=== PATIENT | female | born 1980 | race Caucasian/White ===

== ENCOUNTER 2016-08-13 14:25 | Emergency (ER) | payer OTHER ==
[~2016-08-13] VITALS: Ht 149.9 cm; Wt 106.6 kg
[~2016-08-13 14:25] MED LIST: GLC500 PO; PRENTAB26 PO
[2016-08-13 14:27] VITALS: TEMP 36.7; O2SAT 95; Ht 149.9 cm; Wt 106.6 kg
[2016-08-13] MEDS ORDERED: ADVIN25/60 INH (14:52)
--- NOTE | 2016-08-13 15:19 | DIAGNOSTIC IMAGING REPORT ---
LEFT INDEX FINGER 3 VIEWS CLINICAL HISTORY: Left index finger pain status post trauma COMPARISON: None. DISCUSSION: 3 views reveal no fractures or dislocations. IMPRESSION: No acute fractures or dislocations identified Electronically signed by: Vincent Johnson M.D. 08/13/2016 3:18 PM Dictated Date/Time: 08/13/2016 3:17 PM
--- NOTE | 2016-08-13 15:30 | EMERGENCY ROOM VISIT NOTE ---
ED Visit Note First contact with patient: 14:35 CHIEF COMPLAINT: Left index finger injury HISTORY OF PRESENT ILLNESS: This 36-year-old female patient injured the left index finger today when she slammed it in a car door. There was no audible snap or crack at that time. The patient is able to flex and extend her finger without difficulty. The patient is right-hand dominant. The patient's tetanus is up-to-date. REVIEW OF SYSTEMS: 6 system review was performed and was negative unless stated otherwise in history of present illness. PMH: The patient is healthy; , laparoscopic surgery SOCIAL HISTORY: Patient lives with her family. The patient denies any tobacco or alcohol use. PHYSICAL EXAM: Vital Signs: Were reviewed Reviewed Nurse's notes. GEN.: 36-year -old white female appears in no acute distress. MENTAL Status: Alert and oriented 3. LEFT INDEX FINGER: There is no deformity of the finger. The patient has some erythema and ecchymosis noted at the base of the nail. No open lacerations are noted. The patient able flex and extend her finger without difficulty. EMERGENCY DEPARTMENT COURSE: Patient was evaluated. X-ray of the left index finger was ordered and interpreted by the radiologist and myself. DIAGNOSTICS: LEFT INDEX FINGER 3 VIEWS CLINICAL HISTORY: Left index finger pain status post trauma COMPARISON: None. DISCUSSION: 3 views reveal no fractures or dislocations. IMPRESSION: No acute fractures or dislocations identified Electronically signed by: Vincent Johnson M.D. 08/13/2016 3:18 PM Dictated Date/Time: 08/13/2016 3:17 PM Patient was informed of the findings. Antibiotic ointment and a bandage was applied. The patient was discharged home in stable condition. DIAGNOSIS: Contusion of the left index finger DISCHARGE INSTRUCTIONS: Antibiotic ointment and a bandage for 2 days. Ice intermittently over the next 24 hours. Ibuprofen 600 mg every 6 hours with food for pain. If your fingernail becomes loose try to keep the nail in place as long as possible. Problem List Medical Problems: (1) Anxiety Status: Chronic (2) Depression Status: Chronic Current/Historical Medications Scheduled PRN Fluticasone Prop/Salmeterol (Advair Diskus 250/50 60 Dose), 1 PUFF INH BID PRN for Shortness of Breath Allergies Coded Allergies: Iodinated Contrast Media (Unverified Allergy, Unknown, hives, SOB, 01/05/16 ) Vital Signs Date Time Temp Pulse Resp B/P Pulse Ox O2 Delivery O2 Flow Rate FiO2 08/13/16 14:27 36.7 88 20 148/91 95 Room Air Departure Information Referrals Vicente Dorsey M.D.([place]) (PCP) Patient Instructions My [facility]
[2016-08-13 15:42] VITALS: BP 132/98; PULSE 78
== END 2016-08-13 15:48 | disposition home or self-care (01) ==
LOC: C.EDB 14:26 → C.EDD 15:48
DX: S60.022A Contusion of left index finger without damage to nail, initial encounter (principal); W23.0XXA Caught, crushed, jammed, or pinched between moving objects, initial encounter; F41.9 Anxiety disorder, unspecified; F32.9 Major depressive disorder, single episode, unspecified